=== PATIENT | male | born 1965 | race African-American/Black ===

== ENCOUNTER 2023-05-02 22:25 | Emergency (ER) | payer MEDICAID ==
[~2023-05-02] VITALS: Ht 170.2 cm; Wt 86.0 kg
[2023-05-02 22:29] VITALS: BP 171/109; PULSE 73; RESP 18; TEMP 98.5; O2SAT 100
[2023-05-02] MEDS: TETANUS, DIPHTHERIA, PERTUSSIS VAC/PF 0.5ML (>10YR OLD) IM ONE (23:00)
[2023-05-02] MEDS ORDERED: LIDOCAINE HCL/EPINEPHRINE 1%-EPI 1:100,000 50 ML VIAL INFIL ONE (23:00)
[2023-05-03] MEDS ORDERED: CEPH500C2 MT (01:11)
== END 2023-05-03 01:50 | disposition home or self-care (01) ==
LOC: ER 22:25
DX: S41.112A Laceration without foreign body of left upper arm, initial encounter (principal); I10 Essential (primary) hypertension; F10.129 Alcohol abuse with intoxication, unspecified; G89.11 Acute pain due to trauma; Z86.73 Personal history of transient ischemic attack (TIA), and cerebral infarction without residual deficits; W18.39XA Other fall on same level, initial encounter; Y93.89 Activity, other specified; Y92.89 Other specified places as the place of occurrence of the external cause; Y99.8 Other external cause status; Y90.0 Blood alcohol level of less than 20 mg/100 ml
CPT/HCPCS: 73090; 73120; 90715; 12004; 90471; 99284; Z7610

== ENCOUNTER 2023-05-18 13:25 | Emergency (ER) | payer MEDICAID ==
[~2023-05-18] VITALS: Ht 175.3 cm; Wt 74.0 kg
[~2023-05-18 13:25] MED LIST: CEPH500C2 MT
[2023-05-18 13:42] VITALS: BP 155/98; RESP 20; TEMP 98.3; O2SAT 98
[2023-05-18 13:50] VITALS: PULSE 77
== END 2023-05-18 16:36 | disposition home or self-care (01) ==
LOC: ER 13:46
DX: Z48.02 Encounter for removal of sutures (principal); I10 Essential (primary) hypertension; Z86.73 Personal history of transient ischemic attack (TIA), and cerebral infarction without residual deficits
CPT/HCPCS: 99281